=== PATIENT | female | born 1980 | race Caucasian/White ===

== ENCOUNTER → 2023-02-25 15:01 | Outpatient (BNVA) | payer MEDICAID, SELFPAY | PROVIDERS: PCP Family Medicine; Visit Provider Nurse Practitioner Family | DX: M54.2 Cervicalgia (principal); M54.50 Low back pain, unspecified; M25.571 Pain in right ankle and joints of right foot; G90.529 Complex regional pain syndrome I of unspecified lower limb | CPT/HCPCS: 99202 ==

== ENCOUNTER 2023-03-23 06:13 | Outpatient (REF) | payer MEDICAID, SELFPAY ==
--- NOTE | ~2023-03-23 | FL_ITS ---
EXAMINATION: XR FLUOROSCOPY WITH IMAGES CLINICAL INFORMATION: Complex regional pain syndrome of unspecified lower limb. Lumbar injection. COMPARISON: None available. TECHNIQUE: Fluoroscopy Supervised By: Dr. Mason Zheng. Fluoroscopy Time: 0.5 minutes. Cumulative Dose: 11.9 mGy. DAP: 0.207 Gycm2. Images: 3. FINDINGS: There are 3 digital images obtained with needle positioned lateral to right L3 vertebra with contrast opacifying the adjacent soft tissues. No lytic or sclerotic process seen. The paravertebral soft tissues are normal. FL/FL guidance in treatment room IMPRESSION: Fluoroscopy guidance was provided to referring physician for pain management.
== END 2023-03-23 06:14 | disposition home or self-care (01) ==
LOC: CF 06:13
PROVIDERS: Visit Provider Anesthesiology
DX: G90.521 Complex regional pain syndrome I of right lower limb (principal)
CPT/HCPCS: 64520; J1100

== ENCOUNTER 2023-03-23 14:31 | Outpatient (AMB) | payer MEDICAID, SELFPAY ==
--- NOTE | 2023-03-23 16:12 | MHC.OFFVIS ---
Intake Vital Signs 03/23/23 16:13 03/23/23 16:14 Height 4 ft 11 in 4 ft 11 in Weight 185 lb 185 lb BMI 37.4 37.4 BP 118/88 120/68 Blood Pressure Location Lt brachial Rt brachial Position Sitting Sitting Respiration 19 18 Pulse 78 71 Pulse Source Pulse Oximeter Pulse Oximeter Pulse Oximetry (%) 98 97 Oxygen Delivery Method Room Air Room Air Comment pre-op Post-op Intake Visit Reasons: R LUMBAR SYMPATHETIC BLOCK/LOCAL Allergies acetaminophen [Vicodin] Allergy (Unknown, Verified 03/23/23 16:13) Unknown hydrocodone [Vicodin] Allergy (Unknown, Verified 03/23/23 16:13) Unknown [facility], [facility] Medical History (Updated 02/25/23 @ 16:19 by LYDIA Ruby) Carpal tunnel syndrome, right upper limb Cervicalgia Low back pain Pain in right ankle and joints of right foot Surgical History (Updated 02/27/23 @ 20:13 by LYDIA Ruby) History of appendectomy History of section, classical Hx of cholecystectomy Status post ORIF of fracture of ankle Social History (Updated 02/25/23 @ 15:32 by Deborah Hoyos) Alcohol intake: current Alcohol intake frequency: a few times a month Patient Tobacco Use Status: Former Tobacco user Physical Exam Vital Signs: Last Vital Signs Pulse 71 03/23/23 16:14 Resp 18 03/23/23 16:14 BP 120/68 03/23/23 16:14 Pulse Ox 97 03/23/23 16:14 Oxygen Delivery Method Room Air 03/23/23 16:14 BMI result Body Mass Index 37.4 Results Reviewed Results Reviewed: 03/23/23 15:18 LORazepam [Ativan] 1 mg .ROUTE .STK-MED ONE 03/23/23 16:41 Lidocaine HCl 2 % MPF [Xylocaine 2 % MPF] 5 ml .ROUTE .STK-MED ONE Assessment & Plan Assessment & Plan (1) CRPS 1 (complex regional pain syndrome I) of lower limb: Code(s): G90.529 - Complex regional pain syndrome I of unspecified lower limb Plan Lumbar sympathetic plexus block on the right. After the risks, benefits and alternatives were discussed with the patient and informed consent was obtained, patient was placed in the prone position and padded to foster comfort. Time out was performed delineating correct site and side of the procedure , name and of the patient, patient participated in time out procedure. The lower back of the patient was prepped with ChloraPrep and draped with sterile self adhesive utility towels. C-arm was brought over the operating field and sq picture of L2 vertebra demonstrated on the screen. Tilting C-arm receiver stocker ipsilateral to the right until the projection of most lateral border of the right transverse process was superimposing the projection of the L2 vertebra on the right the most inferior lateral border of the L2 vertebral body on the right was demonstrated on the screen. It was chosen as the target of the injection. 22 gauge 5 in needle was inserted in the projection of the target and advanced to the target in tunnel vision fashion on intermittent anterior posterior and lateral as well as on oblique views. When needle gently contacted the bone it was walked off from the bone until the tip of the needle protruded 2 mm anterior of the anterior border of the 2nd vertebra on the lateral view. Injection of the contrast was performed and demonstrated spread of the contrast into retroperitoneal space. No intrathecal or intravascular spread of the contrast was noted. No intradiscal contrast was noted. Injection of the treatment solution of the ropivacaine 0.5% 8 cc mixed with Decadron 10 mg was performed in the area. Upon completion of the injection the needle was removed and sterile Band-Aid was applied. The patient tolerated procedure fairly well. Orders: Orders FL guidance in treatment room 03/23/23 G90.529 - Complex regional pain syndrome I of unspecified lower limb Coding Level of Care Code Procedure Only Diagnoses CRPS 1 (complex regional pain syndrome I) of lower limb G90.529
[2023-03-23 16:13] VITALS: BP 118/88; PULSE 78; RESP 19; O2SAT 98; BMI 37.4
[2023-03-23 16:14] VITALS: BP 120/68; PULSE 71; RESP 18; O2SAT 97; BMI 37.4
== END 2023-03-23 15:59 | disposition home or self-care (01) ==
PROVIDERS: PCP Family Medicine; Visit Provider Anesthesiology
DX: G90.521 Complex regional pain syndrome I of right lower limb (principal)
CPT/HCPCS: 64520

== ENCOUNTER 2023-04-26 14:54 | Outpatient (AMB) | payer MEDICAID, SELFPAY ==
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
[2023-04-26 14:58] VITALS: BP 140/89; PULSE 75; O2SAT 97; BMI 36.4
== END 2023-04-26 15:45 | disposition home or self-care (01) ==
PROVIDERS: PCP Family Medicine; Visit Provider Nurse Practitioner Family
DX: M54.50 Low back pain, unspecified (principal); M25.571 Pain in right ankle and joints of right foot; G90.529 Complex regional pain syndrome I of unspecified lower limb
CPT/HCPCS: 99214

== ENCOUNTER → 2023-04-26 14:54 | Outpatient (BNVA) | payer MEDICARE, MEDICAID, SELFPAY | PROVIDERS: PCP Family Medicine; Visit Provider Nurse Practitioner Family | DX: M54.50 Low back pain, unspecified (principal); G90.521 Complex regional pain syndrome I of right lower limb; M25.571 Pain in right ankle and joints of right foot | CPT/HCPCS: 99214 ==

== ENCOUNTER 2025-02-13 09:17 | Outpatient (AMB) | payer MEDICARE, MEDICAID, SELFPAY ==
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
[2025-02-13 09:25] VITALS: BP 114/59; PULSE 67; O2SAT 100; BMI 33.4
--- OUTSIDE RECORDS SUMMARY | 2025-02-13 10:04 | XMS_ITS | Patient Health Record ---
Author Organization [facility] Address [address] [place] [address] Care Team Providers Care Optimization Consultant Name Role Phone Marshall CHRISTIANSEN, Irasema Primary Care Provider Unava ilable Allergies Allergen (clinical drug ingredient) Drug/Non Drug Allergy documented on EMR Reaction Allergy Type Onset Date Status Vicodin Unknown Drug Allergy Active Reason For Referral No Information Medications Medication SIG (Take, Route, Frequency, Duration) Notes Start Date End Date Status Venlafaxine HCl ER 150 MG 1 capsule with food Orally Once a day take with 150 for tdd 225 Active Metaxalone 800 MG 1 tablet Orally Thre e times a day for 30 day(s) 10/05/2017 Active LORazepam 0.5 MG 1 tablet as needed Orally Once a day Active Social History Tobacco Use: Social History Observation Description Date Details (start date - stop date) Never Smoker NA - NA Tobacco Use/Smoking Question Answer Notes Are you a nonsmoker Plan Of Treatment No Information Insurance Providers Payer Name Payer Address Payer Phone Subscriber Number Group Number Insured Name Patient Relationship to Insured Coverage Start Date Coverage End Date [facility] [address] [address] [place] [address] [id number] ISAK EID Self - patient is the insured 8 Medical (General) History Medical History History ICD Code Neck pain Cervical radiculitis Constipation Diarrhea Abdominal pain Joint pain Arthritis Surgical History Surgery Date(Month/Year) 2 C-Sections Appendectomy 1991 Right ankle Cholecystectomy 2017 hemorrhoidectomy 2017 Hospitalization History Reason Date(Month/Year) Surgeries
== END 2025-02-13 09:55 | disposition home or self-care (01) ==
LOC: HO.PMC 09:17
PROVIDERS: PCP Family Medicine; Visit Provider Nurse Practitioner Family
DX: M50.30 Other cervical disc degeneration, unspecified cervical region (principal); M47.812 Spondylosis without myelopathy or radiculopathy, cervical region; M25.519 Pain in unspecified shoulder; M62.838 Other muscle spasm; Z87.828 Personal history of other (healed) physical injury and trauma; G43.909 Migraine, unspecified, not intractable, without status migrainosus; R20.0 Anesthesia of skin; R20.2 Paresthesia of skin
CPT/HCPCS: 99214; G2211

== ENCOUNTER → 2025-02-13 09:17 | Outpatient (BNVA) | payer MEDICARE, MEDICAID, SELFPAY | PROVIDERS: PCP Family Medicine; Visit Provider Nurse Practitioner Family | DX: M54.2 Cervicalgia (principal); M50.30 Other cervical disc degeneration, unspecified cervical region; M47.812 Spondylosis without myelopathy or radiculopathy, cervical region; M25.519 Pain in unspecified shoulder; M62.838 Other muscle spasm; G43.909 Migraine, unspecified, not intractable, without status migrainosus; R20.0 Anesthesia of skin; R20.2 Paresthesia of skin; Z87.828 Personal history of other (healed) physical injury and trauma | CPT/HCPCS: 99212 ==

== ENCOUNTER → 2025-03-12 10:46 | Outpatient (BNV) | payer MEDICARE, MEDICAID, SELFPAY | PROVIDERS: PCP Family Medicine; Visit Provider Radiology Diagnostic Radiology | DX: S09.90XA Unspecified injury of head, initial encounter (principal); G43.909 Migraine, unspecified, not intractable, without status migrainosus; R51.9 Headache, unspecified; H53.8 Other visual disturbances; V89.2XXA Person injured in unspecified motor-vehicle accident, traffic, initial encounter | CPT/HCPCS: 70553 ==

== ENCOUNTER 2025-03-12 10:49 | Outpatient (REF) | payer MEDICARE, MEDICAID, SELFPAY ==
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
--- OUTSIDE RECORDS SUMMARY | 2025-03-12 11:45 | XMS_ITS | Patient Health Record ---
Author Organization [facility] Address [address] [place] [address] Care Team Providers Care Rolls Mill Operator Name Role Phone Marshall CHRISTIANSEN, Irasema Primary [...] 1 tablet Orally Thre e times a day; Duration: 30 day(s) 10/05/2017 Active LORazepam 0.5 MG [...] Insured Coverage Start Date Coverage End Date [facility] [address] [address] [place] [address] [id number] ISAK EID Self - patient is the insured 8 Medical (General) History Medical History History ICD Code Neck pain Cervical radiculitis Constipation Diarrhea Abdominal pain Joint pain Arthritis Surgical History Surgery Date(Month/Year) 2 C-Sections Appendectomy 1990 Right ankle Cholecystectomy 2017 hemorrhoidectomy 2017 Hospitalization History Reason Date(Month/Year) Surgeries
== END 2025-03-12 10:50 | disposition home or self-care (01) ==
LOC: HO.MRI 10:49
PROVIDERS: PCP Family Medicine; Visit Provider Nurse Practitioner Family
DX: G43.909 Migraine, unspecified, not intractable, without status migrainosus (principal); H53.8 Other visual disturbances; Z87.828 Personal history of other (healed) physical injury and trauma
CPT/HCPCS: 70553; A9585

== ENCOUNTER 2025-05-24 10:43 | Outpatient (AMB) | payer MEDICARE, MEDICAID, SELFPAY ==
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
[2025-05-24 10:48] VITALS: BP 125/62; PULSE 77; O2SAT 98; BMI 34.0
== END 2025-05-24 11:15 | disposition home or self-care (01) ==
LOC: HO.PMC 10:44
PROVIDERS: PCP Family Medicine; Visit Provider Nurse Practitioner Family
DX: M54.50 Low back pain, unspecified (principal); M54.2 Cervicalgia; M47.812 Spondylosis without myelopathy or radiculopathy, cervical region; M62.838 Other muscle spasm; R20.0 Anesthesia of skin; R20.2 Paresthesia of skin
CPT/HCPCS: 99214; G2211

== ENCOUNTER → 2025-05-24 10:43 | Outpatient (BNVA) | payer MEDICARE, MEDICAID, SELFPAY | PROVIDERS: PCP Family Medicine; Visit Provider Nurse Practitioner Family | DX: M54.2 Cervicalgia (principal); M47.812 Spondylosis without myelopathy or radiculopathy, cervical region; M62.838 Other muscle spasm; M54.50 Low back pain, unspecified; R20.0 Anesthesia of skin; R20.2 Paresthesia of skin | CPT/HCPCS: 99212 ==